=== PATIENT | female | born 1975 | race Caucasian/White ===

== ENCOUNTER 2018-03-30 17:22 | Inpatient (IN) ==
[2018-03-30] MEDS ORDERED: 0.9 % Sodium Chloride 500 ML IVC ONE (17:37)
[2018-03-30] MEDS ORDERED: Aspirin 81 MG TAB.CHEW PO ONE (17:37)
[2018-03-30] MEDS ORDERED: Nitroglycerin 0.4 MG TAB.SUBL SL STA (17:45)
[2018-03-30] MEDS ORDERED: Nitroglycerin 25 MG/250 ML INFUS..BTL IVC SCH (17:45)
--- NOTE | 2018-03-30 17:47 | Emergency Department Note ---
Disposition Clinical Impression: Chest pain Qualifiers: Chest pain type: unspecified Qualified Code(s): R07.9 - Chest pain, unspecified Disposition: Admitted As Inpatient Condition: Fair Referrals: Swapna Lugo CNP [Primary Care Provider] - Forms: ED Satisfaction Letter Time of Disposition: 20:17 General Adult HPI - General Chief complaint: ED Chest Pain Stated complaint: CP Time Seen by Provider: 03/30/18 17:29 Source: patient Nursing Notes Reviewed: Yes Vital Signs Reviewed: Yes - History of Present Illness Pain Scale: 0 - Related Data Home Medications Medication Instructions Recorded Confirmed Acetaminophen [Tylenol] 650 mg PO Q6HR PRN 03/17/18 03/30/18 Buspirone HCl [Buspar] 30 mg PO BID 03/17/18 03/30/18 Oxybutynin Chloride [Ditropan Xl] 5 mg PO DAILY 03/17/18 03/30/18 Amitriptyline [Elavil] 75 mg PO HS 03/30/18 03/30/18 Aspirin Enteric Coated [Aspirin EC] 81 mg PO DAILY 03/30/18 03/30/18 Diltiazem [Cardizem] 30 mg PO QID 03/30/18 03/30/18 Linaclotide [Linzess] 290 mcg PO DAILY 03/30/18 03/30/18 Nitroglycerin [Nitrostat] 0.4 mg PO AD PRN 03/30/18 03/30/18 Pantoprazole Sodium [Protonix] 40 mg PO DAILY 03/30/18 03/30/18 Venlafaxine HCl [Venlafaxine HCl 225 mg PO DAILY 03/30/18 03/30/18 ER] Previous Rx's Medication Instructions Recorded Atorvastatin [Lipitor] 40 mg PO HS 30 Days #30 tablet 03/18/18 Metoprolol [Lopressor] 25 mg PO BID 30 Days #60 tablet 03/18/18 Allergies Allergy/AdvReac Type Severity Reaction Status Date / Time morphine AdvReac Intermediate Vomiting Verified 03/30/18 18:44 Past Medical History - Past Medical History Medical history: Reports: coronary artery disease, hyperlipidemia, hypertension Psychiatric history: Reports: anxiety, depression - Social History Smoking Status: Current every day smoker Smokeless Tobacco Status: No Alcohol use: Reports: none Drug use: Reports: none Course Vital Signs Temperature 98.0 F 03/30/18 17:24 Pulse Rate 66 03/30/18 17:24 Respiratory Rate 18 03/30/18 17:24 Blood Pressure 144/86 03/30/18 17:24 O2 Sat by Pulse Oximetry 100 03/30/18 17:24 Temperature 98.0 F 03/30/18 17:50 Pulse Rate 63 03/30/18 19:33 Respiratory Rate 18 03/30/18 19:33 Blood Pressure 105/60 03/30/18 19:33 O2 Sat by Pulse Oximetry 100 03/30/18 19:33 Oxygen Delivery Oxygen Delivery Room Air Medical Decision Making - Lab Data Result diagrams: 03/30/18 18:02 03/30/18 18:02 Lab Results 03/30/18 03/30/18 03/30/18 Range/Units 18:02 18:02 18:02 WBC 11.6 H (4.3-11.1) K/mcL RBC 4.80 (3.82-4.97) M/mcL Hgb 13.7 (11.5-15.4) g/dL Hct 42.2 (35.3-44.9) % MCV 87.9 (83.0-100.0) fL MCH 28.5 (28.0-33.3) pg MCHC 32.5 (31.6-35.5) g/dL RDW 14.7 H (11.5-14.5) % Plt Count 364 (140-400) K/mcL MPV 9.4 (9.4-12.4) fL Immature Gran % 0.3 (0-4) % Seg Neutrophils % 63.5 % Lymphocytes % 28.7 % Monocytes % 4.7 % Eosinophils % 2.5 % Basophils % 0.3 % Neutrophils # 7.4 (1.6-8.9) K/mcL Lymphocytes # 3.3 (0.6-4.6) K/mcL Monocytes # 0.5 (0.0-1.3) K/mcL Eosinophils # 0.3 (0.0-0.6) K/mcL Basophils # 0.0 (0.0-0.2) K/mcL PT 10.9 (9.4-12.1) Seconds INR 1.0 APTT 31.2 (26.0-36.0) Seconds Sodium 136 (136-145) mEq/L Potassium 3.7 (3.5-5.1) mEq/L Chloride 105 (98-107) mEq/L Carbon Dioxide 24 (23-29) mEq/L BUN 10 (6-20) mg/dL Creatinine 0.97 (0.60-1.20) mg/dL Est GFR ( Amer) > 60 (> 60) Est GFR (Non-Af Amer) > 60 (> 60) BUN/Creatinine Ratio 10 (6-26) Glucose 98 (70-105) mg/dL Calculated Osmolality 281 (280-300) Calcium 9.0 (8.6-10.3) mg/dL Troponin I < 0.03 (< 0.04) ng/mL Urine Color (Yellow) Urine Clarity (Clear) Urine pH (5.0-8.0) pH Units Ur Specific [place] (1.010-1.025) Urine Protein (Neg-Trace) mg/dL Urine Glucose (UA) (Normal) mg/dL Urine Ketones (Negative) mg/dL Urine Blood (Negative) Urine Nitrite (Negative) Urine Bilirubin (Negative) Urine Urobilinogen (Normal) mg/dL Ur Leukocyte Esterase (Negative) Ur Culture Indicated? (NO) Urine Test (Negative) 03/30/18 03/30/18 Range/Units 18:22 18:22 WBC (4.3-11.1) K/mcL RBC (3.82-4.97) M/mcL Hgb (11.5-15.4) g/dL Hct (35.3-44.9) % MCV (83.0-100.0) fL MCH (28.0-33.3) pg MCHC (31.6-35.5) g/dL RDW (11.5-14.5) % Plt Count (140-400) K/mcL MPV (9.4-12.4) fL Immature Gran % (0-4) % Seg Neutrophils % % Lymphocytes % % Monocytes % % Eosinophils % % Basophils % % Neutrophils # (1.6-8.9) K/mcL Lymphocytes # (0.6-4.6) K/mcL Monocytes # (0.0-1.3) K/mcL Eosinophils # (0.0-0.6) K/mcL Basophils # (0.0-0.2) K/mcL PT (9.4-12.1) Seconds INR APTT (26.0-36.0) Seconds Sodium (136-145) mEq/L Potassium (3.5-5.1) mEq/L Chloride (98-107) mEq/L Carbon Dioxide (23-29) mEq/L BUN (6-20) mg/dL Creatinine (0.60-1.20) mg/dL Est GFR ( Amer) (> 60) Est GFR (Non-Af Amer) (> 60) BUN/Creatinine Ratio (6-26) Glucose (70-105) mg/dL Calculated Osmolality (280-300) Calcium (8.6-10.3) mg/dL Troponin I (< 0.04) ng/mL Urine Color Yellow (Yellow) Urine Clarity Clear (Clear) Urine pH 6.0 (5.0-8.0) pH Units Ur Specific [place] 1.016 (1.010-1.025) Urine Protein Negative (Neg-Trace) mg/dL Urine Glucose (UA) Normal (Normal) mg/dL Urine Ketones Negative (Negative) mg/dL Urine Blood Negative (Negative) Urine Nitrite Negative (Negative) Urine Bilirubin Negative (Negative) Urine Urobilinogen Normal (Normal) mg/dL Ur Leukocyte Esterase Negative (Negative) Ur Culture Indicated? NO (NO) Urine Test Negative (Negative) Attestation Statement - Attestation Attestation: I examined this patient and my medical decision-making was reviewed with the Resident Physician. I agree with the documented findings, disposition and treat ment plan as described except to the extent set forth below. Patient presents to the ED with a chief complaint of chest pain. Onset this morning. Substernal. Patient has been having issues for couple weeks. She had a heart catheter a week ago that showed a 60% stenosis. They contemplated sending her at that time since she was symptomatically. They wonder to pass a kidney stone. She had surgery on that Thursday. She states the chest pain returned today. On examination she is pleasant conversant in no distress. She is complaining of active chest pain. Lungs clear. Plan. Cardiac workup. Nitroglycerin. Anticipate admission for cardiology consult. Troponin negative. Patient admitted for cardiac workup. Chest X-Ray 03/30/18 17:37 IMPRESSION: No acute cardiopulmonary findings. D/ / Brandy Carcamo MD / Brandy Carcamo MD Interpreting Provider: Brandy Carcamo MD
[2018-03-30 18:32] LABS: Basophils % 0.3 %; Eosinophils # 0.3 K/mcL (0.0-0.6); Eosinophils % 2.5 %; Hematocrit 42.2 % (35.3-44.9); Hemoglobin 13.7 g/dL (11.5-15.4); Immature Granulocytes % 0.3 % (0-4); Lymphocytes # 3.3 K/mcL (0.6-4.6); Lymphocytes % 28.7 %; Mean Corpuscular HGB Conc 32.5 g/dL (31.6-35.5); Mean Corpuscular Hemoglobin 28.5 pg (28.0-33.3); Mean Corpuscular Volume 87.9 fL (83.0-100.0); Mean Platelet Volume 9.4 fL (9.4-12.4); Monocytes # 0.5 K/mcL (0.0-1.3); Monocytes % 4.7 %; Neutrophils # 7.4 K/mcL (1.6-8.9); Platelet Count 364 K/mcL (140-400); Red Cell Distribution Width 14.7 % (11.5-14.5); Segmented Neutrophils % 63.5 %
[2018-03-30 18:39] LABS: Prothrombin Time 10.9 Seconds (9.4-12.1)
--- NOTE | 2018-03-30 18:39 | Emergency Department Note ---
Disposition Clinical Impression: Chest pain Qualifiers: Chest pain type: unspecified Qualified Code(s): R07.9 - Chest pain, unspecified Disposition: Admitted As Inpatient Condition: Fair Chest Pain HPI - General Chief Complaint: ED Chest Pain Stated Complaint: CP Time Seen by Provider: 03/30/18 17:29 Source: patient, family Mode of arrival: ambulatory Limitations: no limitations Vital Signs Reviewed: Yes Nursing Notes Reviewed: Yes - History of Present Illness HPI Narrative: Patient presents to the ED with chief complaint of chest pain. Patient just had a heart catheter on the sixth of this month that showed a 60% blockage. She is on nitroglycerin at home. States she has been having intermittent chest pain and does see cardiology for this. She has no stents currently. She states that 3 AM this morning. She had "the worst chest pain of my life." She described it as a crushing pressure in the center of her chest, nonradiating did make her nauseated but no vomiting. No diaphoresis. The pain lasted approximately 30 seconds, but she states only that went away. His that she got to the kitchen and took a nitroglycerin. She states the pain has started to come back, but is much less. Now it is more of just a dull discomfort. No headaches or changes in vision. She does get headaches after taking nitroglycerin but that does go away eventually. No current shortness of breath. Denies any abdominal pain, vomiting, diarrhea, hematuria or dysuria. No melena or hematochezia. No rashes. No history of DVT or PE. Does have a strong family history of early heart attacks in the 40s and 50s Severity scale (1-10): 0 - Related Data Home Medications Medication Instructions Recorded Confirmed Acetaminophen [Tylenol] 650 mg PO Q6HR PRN 03/17/18 03/30/18 Buspirone HCl [Buspar] 30 mg PO BID 03/17/18 03/30/18 Oxybutynin Chloride [Ditropan Xl] 5 mg PO DAILY 03/17/18 03/30/18 Amitriptyline [Elavil] 75 mg PO HS 03/30/18 03/30/18 Aspirin Enteric Coated [Aspirin EC] 81 mg PO DAILY 03/30/18 03/30/18 Diltiazem [Cardizem] 30 mg PO QID 03/30/18 03/30/18 Linaclotide [Linzess] 290 mcg PO DAILY 03/30/18 03/30/18 Nitroglycerin [Nitrostat] 0.4 mg PO AD PRN 03/30/18 03/30/18 Pantoprazole Sodium [Protonix] 40 mg PO DAILY 03/30/18 03/30/18 Venlafaxine HCl [Venlafaxine HCl 225 mg PO DAILY 03/30/18 03/30/18 ER] Previous Rx's Medication Instructions Recorded Atorvastatin [Lipitor] 40 mg PO HS 30 Days #30 tablet 03/18/18 Metoprolol [Lopressor] 25 mg PO BID 30 Days #60 tablet 03/18/18 Allergies Allergy/AdvReac Type Severity Reaction Status Date / Time morphine AdvReac Intermediate Vomiting Verified 03/30/18 18:44 Review of Systems: As reviewed in the HPI. All other systems reviewed are negative or normal. Chest Pain PMH - Past Medical History Medical history: Reports: coronary artery disease, hyperlipidemia, hypertension Psychiatric history: Reports: anxiety, depression - Social History Smoking Status: Current every day smoker Alcohol use: Reports: none Drug use: Reports: none Physical Exam CONSTITUTIONAL: [well appearing, alert and in no acute distress] EYES: [EOMI, clear conjunctiva, PERRLA] HENT: [Normocephalic, atraumatic, moist mucus membranes, normal oropharynx] NECK: [normal inspection, full ROM, trachea midline, no obvious swelling] PULMONARY: [normal lung sounds bilaterally, normal chest rise and fall, no r espiratory distress or stridor, trace end expiratory wheezing throughout CARDIOVASCULAR: [regular rate, regular rhythm, normal heart sounds, no murmurs, distal extremities are warm and well perfused] GASTROINSTESTINAL: [soft, non-tender, non-rigid, non-distended, no guarding, no rebound, normal bowel sounds] GENITOURINARY/RECTAL: [deferred] NEUROLOGIC: [Alert, oriented x3, normal speech, moves all extremities] EXTREMITIES: [Normal inspection, full ROM, no tenderness, no pedal edema, normal capillary refill] MUSCULOSKELETAL: [no gross deformities, atraumatic] SKIN: [No cyanosis, no diaphoresis, normal color, warm, no rash] PSYCHIATRIC: [normal mood and affect] - General General appearance: alert, in no apparent distress Course Course Narrative: Patient presenting with angina. EKG shows some ST segment depression inferiorly. Patient has a known blockages no stents. We will start on a nitroglycerin drip check labs and admit. Vital Signs Temperature 98.0 F 03/30/18 17:24 Pulse Rate 66 03/30/18 17:24 Respiratory Rate 18 03/30/18 17:24 Blood Pressure 144/86 03/30/18 17:24 O2 Sat by Pulse Oximetry 100 03/30/18 17:24 Temperature 98.0 F 03/30/18 17:50 Pulse Rate 63 03/30/18 19:33 Respiratory Rate 18 03/30/18 19:33 Blood Pressure 105/60 03/30/18 19:33 O2 Sat by Pulse Oximetry 100 03/30/18 19:33 Oxygen Delivery Oxygen Delivery Room Air Chest Pain - Medical Records Medical records reviewed: Yes I reviewed the patient's medical records. - Lab Data Lab results reviewed: Yes I reviewed the patient's lab results. Result diagrams: 03/30/18 18:02 03/30/18 18:02 Lab Results 03/30/18 03/30/18 03/30/18 Range/Units 18:02 18:02 18:02 WBC 11.6 H (4.3-11.1) K/mcL RBC 4.80 (3.82-4.97) M/mcL Hgb 13.7 (11.5-15.4) g/dL Hct 42.2 (35.3-44.9) % MCV 87.9 (83.0-100.0) fL MCH 28.5 (28.0-33.3) pg MCHC 32.5 (31.6-35.5) g/dL RDW 14.7 H (11.5-14.5) % Plt Count 364 (140-400) K/mcL MPV 9.4 (9.4-12.4) fL Immature Gran % 0.3 (0-4) % Seg Neutrophils % 63.5 % Lymphocytes % 28.7 % Monocytes % 4.7 % Eosinophils % 2.5 % Basophils % 0.3 % Neutrophils # 7.4 (1.6-8.9) K/mcL Lymphocytes # 3.3 (0.6-4.6) K/mcL Monocytes # 0.5 (0.0-1.3) K/mcL Eosinophils # 0.3 (0.0-0.6) K/mcL Basophils # 0.0 (0.0-0.2) K/mcL PT 10.9 (9.4-12.1) Seconds INR 1.0 APTT 31.2 (26.0-36.0) Seconds Heparin Anti-Xa, Unfract (0.30-0.70) IU/mL Sodium 136 (136-145) mEq/L Potassium 3.7 (3.5-5.1) mEq/L Chloride 105 (98-107) mEq/L Carbon Dioxide 24 (23-29) mEq/L BUN 10 (6-20) mg/dL Creatinine 0.97 (0.60-1.20) mg/dL Est GFR ( Amer) > 60 (> 60) Est GFR (Non-Af Amer) > 60 (> 60) BUN/Creatinine Ratio 10 (6-26) Glucose 98 (70-105) mg/dL Calculated Osmolality 281 (280-300) Calcium 9.0 (8.6-10.3) mg/dL Troponin I < 0.03 (< 0.04) ng/mL Urine Color (Yellow) Urine Clarity (Clear) Urine pH (5.0-8.0) pH Units Ur Specific [place] (1.010-1.025) Urine Protein (Neg-Trace) mg/dL Urine Glucose (UA) (Normal) mg/dL Urine Ketones (Negative) mg/dL Urine Blood (Negative) Urine Nitrite (Negative) Urine Bilirubin (Negative) Urine Urobilinogen (Normal) mg/dL Ur Leukocyte Esterase (Negative) Ur Culture Indicated? (NO) Urine Test (Negative) 03/30/18 03/30/18 03/30/18 Range/Units 18:22 18:22 20:24 WBC (4.3-11.1) K/mcL RBC (3.82-4.97) M/mcL Hgb (11.5-15.4) g/dL Hct (35.3-44.9) % MCV (83.0-100.0) fL MCH (28.0-33.3) pg MCHC (31.6-35.5) g/dL RDW (11.5-14.5) % Plt Count (140-400) K/mcL MPV (9.4-12.4) fL Immature Gran % (0-4) % Seg Neutrophils % % Lymphocytes % % Monocytes % % Eosinophils % % Basophils % % Neutrophils # (1.6-8.9) K/mcL Lymphocytes # (0.6-4.6) K/mcL Monocytes # (0.0-1.3) K/mcL Eosinophils # (0.0-0.6) K/mcL Basophils # (0.0-0.2) K/mcL PT (9.4-12.1) Seconds INR APTT (26.0-36.0) Seconds Heparin Anti-Xa, Unfract 0.03 L (0.30-0.70) IU/mL Sodium (136-145) mEq/L Potassium (3.5-5.1) mEq/L Chloride (98-107) mEq/L Carbon Dioxide (23-29) mEq/L BUN (6-20) mg/dL Creatinine (0.60-1.20) mg/dL Est GFR ( Amer) (> 60) Est GFR (Non-Af Amer) (> 60) BUN/Creatinine Ratio (6-26) Glucose (70-105) mg/dL Calculated Osmolality (280-300) Calcium (8.6-10.3) mg/dL Troponin I (< 0.04) ng/mL Urine Color Yellow (Yellow) Urine Clarity Clear (Clear) Urine pH 6.0 (5.0-8.0) pH Units Ur Specific [place] 1.016 (1.010-1.025) Urine Protein Negative (Neg-Trace) mg/dL Urine Glucose (UA) Normal (Normal) mg/dL Urine Ketones Negative (Negative) mg/dL Urine Blood Negative (Negative) Urine Nitrite Negative (Negative) Urine Bilirubin Negative (Negative) Urine Urobilinogen Normal (Normal) mg/dL Ur Leukocyte Esterase Negative (Negative) Ur Culture Indicated? NO (NO) Urine Test Negative (Negative) - Radiology Data Radiology results reviewed: Yes I reviewed the patient's radiology results. - EKG Data EKG attestation: Yes I reviewed and interpreted this EKG. EKG results narrative: Sinus rhythm, rate 67, ST segment depression inferiorly, otherwise no acute ischemic changes
[2018-03-30 18:41] LABS: Activated Partial Thrombo Time 31.2 Seconds (26.0-36.0)
[2018-03-30 18:41] LABS: Bilirubin,Urine Negative (Negative); Blood,Urine Negative (Negative); Clarity,Urine Clear (Clear); Color,Urine Yellow (Yellow); Glucose,Urine (UA) Normal (Normal); Ketones,Urine Negative (Negative); Leukocyte Esterase,Urine Negative (Negative); Nitrite,Urine Negative (Negative); Protein,Urine Negative (Neg-Trace); Specific Gravity,Urine 1.016 (1.010-1.025); Urobilinogen,Urine Normal (Normal)
[2018-03-30 18:42] LABS: Troponin I < 0.03 ng/mL (< 0.04)
[2018-03-30 18:45] LABS: BUN/Creatinine Ratio 10 (6-26); Blood Urea Nitrogen 10 mg/dL (6-20); Carbon Dioxide 24 mEq/L (23-29); Chloride 105 mEq/L (98-107); Glucose 98 mg/dL (70-105); Osmolality,Calculated 281 (280-300); Potassium 3.7 mEq/L (3.5-5.1); Sodium 136 mEq/L (136-145); eGFR For Non-African Americans > 60 (> 60)
[2018-03-30] MEDS ORDERED: *HR* Heparin 5,000 UNIT/ML VIAL IVP ONE (19:43)
[2018-03-30] MEDS ORDERED: Nitroglycerin 0.4 MG TAB.SUBL SL PRN (20:52)
[2018-03-30] MEDS ORDERED: traMADol 50 MG TABLET PO ONE (20:52)
[2018-03-30] MEDS: Heparin 25,000 UNIT/500 ML D5W 25,000 UNIT/500 ML BAG IVC SCH (21:01)
--- NOTE | 2018-03-30 22:12 | Internal Med History&Physical ---
Date of Encounter: 03/30/18 Time of Encounter: 22:09 Internal Medicine - H&P: HPI Chief complaint: chest pain Admitted From: Home Plans for Post Hospital Care: Home History of present illness: Lorena Lew is a 42-year-old woman with hypertension, hyperlipidemia and coronary artery disease found to have mild to moderate 2 vessel disease on cardiac catheter done for unstable angina on 03/18/18 and no further intervention done as she was scheduled for lithotripsy and ureteral stent placement the setting of nephrolithiasis a few days after. She comes to the ER today complaining of chest pain that started at 3 AM this morning while sleep describing it as a crushing pressure sensation in the center of her chest that resolved with nitroglycerin. Later on in the day after work she again developed chest pain but now with radiation to the left side of her neck and shoulder. This prompted her to seek medical attention. The ER she was seen clinically and hemodynamically stable. EKG on my review showed normal sinus rhythm with no ST segment elevations. Her chest pain did not resolve with sublingual nitroglycerin and was subsequently started on nitroglycerin drip. This brought the pain down to 7/10 and she reported to me and therefore heparin drip was started. Lab studies are grossly unremarkable on this time. She is now admitted for further observation. Past Med Surg Social Fam HX - Past Medical History Medical history: coronary artery disease, hyperlipidemia, hypertension Psychiatric history: anxiety, depression - Past Surgical History Additional surgical history: heart cath, rhinoplasty, tubal, partial hyst, ablation - Social History Smoking Status: Current every day smoker Smokeless Tobacco Status: No Alcohol use: none Drug use: none - Family History Mother Living Status: Hx Family Cardiac Disorders: Yes Hx Family Respiratory Disorders: No Hx Family Cancer: No Hx Family GI Disorders: No Hx Family Endocrine Disorder: Yes Hx Family Neuromuscular Disorders: No Hx Family Neurologic Disorders: Yes Hx Family Autoimmune Disorders: No Father Living Status: Still Living Hx Family Cardiac Disorders: Yes Hx Family Respiratory Disorders: Yes Hx Family Cancer: Yes (Prostate cancer) Internal Medicine - H&P: Meds Acetaminophen [Tylenol] 650 mg PO Q6HR PRN 03/17/18 [History] Buspirone HCl [Buspar] 30 mg PO BID 03/17/18 [History] Oxybutynin Chloride [Ditropan Xl] 5 mg PO DAILY 03/17/18 [History] Atorvastatin [Lipitor] 40 mg PO HS 30 Days #30 tablet 03/18/18 [Rx] Metoprolol [Lopressor] 25 mg PO BID 30 Days #60 tablet 03/18/18 [Rx] Amitriptyline [Elavil] 75 mg PO HS 03/30/18 [History] Aspirin Enteric Coated [Aspirin EC] 81 mg PO DAILY 03/30/18 [History] Diltiazem [Cardizem] 30 mg PO QID 03/30/18 [History] Linaclotide [Linzess] 290 mcg PO DAILY 03/30/18 [History] Nitroglycerin [Nitrostat] 0.4 mg PO AD PRN 03/30/18 [History] Pantoprazole Sodium [Protonix] 40 mg PO DAILY 03/30/18 [History] Venlafaxine HCl [Venlafaxine HCl ER] 225 mg PO DAILY 03/30/18 [History] Allergy/AdvReac Type Severity Reaction Status Date / Time morphine AdvReac Intermediate Vomiting Verified 03/30/18 18:44 All Systems PM: A 10-system review of systems was performed and is negative for pertinent findings except as documented above in the HPI. - Constitutional Vitals: Temp Pulse Resp BP Pulse Ox 98.0 F 67 18 107/66 98 03/30/18 17:50 03/30/18 21:05 03/30/18 21:05 03/30/18 21:05 03/30/18 21:05 Exam: Vitals: Reviewed General: Well-developed and well-appearing in no acute distress. Skin: Warm and supple. HEENT: Moist mucous membranes. No conjunctivae pallor. Neck: No lymphadenopathy. No JVD. No carotid bruits. No palpable thyroid. Chest: Normal thoracic expansion. Normal breath sounds. Clear to auscultation. Heart: Normal S1 & S2; rhythmic. No rubs or murmurs. Abdomen: Non-distended, soft and non-tender to palpation. No peritoneal reaction. Extremities: No clubbing, cyanosis or edema. No calf tenderness. Normal distal pulses. Neurological: Awake, alert and oriented to person, place and time. No focal deficits. Psych: Affect appropriate. Internal Med - H&P Results - Labs CBC & Chem 7: 03/30/18 18:02 03/30/18 18:02 Labs: Short CBC 03/30/18 Range/Units 18:02 WBC 11.6 H (4.3-11.1) K/mcL Hgb 13.7 (11.5-15.4) g/dL Hct 42.2 (35.3-44.9) % Plt Count 364 (140-400) K/mcL Neutrophils # 7.4 (1.6-8.9) K/mcL BMP 03/30/18 18:02 Sodium 136 Potassium 3.7 Chloride 105 Carbon Dioxide 24 BUN 10 Creatinine 0.97 Glucose 98 Calcium 9.0 Cardiac Enzymes 03/30/18 Range/Units 18:02 Troponin I < 0.03 (< 0.04) ng/mL Urine 03/30/18 Range/Units 18:22 Urine Color Yellow (Yellow) Urine Clarity Clear (Clear) Urine pH 6.0 (5.0-8.0) pH Units Ur Specific [place] 1.016 (1.010-1.025) Urine Protein Negative (Neg-Trace) mg/dL Urine Glucose (UA) Normal (Normal) mg/dL - Impressions ITS Impressions Chest X-Ray 03/30/18 17:37 IMPRESSION: No acute cardiopulmonary findings. D/ / Brandy Carcamo MD / Brandy Carcamo MD Interpreting Provider: Brandy Carcamo MD - Assessment and plan (1) Unstable angina Current Visit: Yes Status: Acute Assessment and plan: The patient has known CAD and progressive symptoms concerning for unstable angina. Will continue nitroglycerin and heparin gtt to achieve pain control. Trend troponins and monitor on telemetry. Will benefit from cardiology consultation. Will keep NPO PMN in the amish the a procedure is scheduled. (2) Coronary artery disease Current Visit: Yes Status: Chronic Assessment and plan: Will continue antiplatelet therapy, statin, beta and calcium channel blockers. Further management as indicated above. Qualifiers: Coronary Disease-Associated Artery/Lesion type: [place] artery [place] vs. transplanted heart: [place] heart Associated angina: with unstable angina Qualified Code(s): I25.110 - Atherosclerotic heart disease of [place] coronary artery with unstable angina pectoris (3) Ureteral colic Current Visit: Yes Status: Acute Assessment and plan: Now relieved after lithotripsy and stent placement. UA unremarkable. (4) Depression Current Visit: Yes Status: Chronic Assessment and plan: Will continue TCA and SNRI therapy. Qualifiers: Depression Type: unspecified Qualified Code(s): F32.9 - Major depressive disorder, single episode, unspecified (5) Tobacco abuse Current Visit: Yes Status: Chronic Assessment and plan: Counseled accordingly and resources made available. - Time Spent With Patient Total time spent is greater than 50% in coordination of care (as documented) at patient's floor/unit and/or counseling patient: Greater than 35 minutes
[2018-03-31] MEDS: Acetaminophen 325 MG TABLET PO PRN ×2 (03:56→11:38)
--- NOTE | 2018-03-31 07:28 | Internal Med Progress Note ---
Hospitalist Progress Note - Encounter Date of Encounter: 03/31/18 Time of Encounter: 08:00 - Exam Vitals: Temp Pulse Resp BP Pulse Ox 98.7 F 64 16 128/78 98 03/31/18 07:17 03/31/18 07:17 03/31/18 07:17 03/31/18 07:17 03/31/18 07:17 Exam: Vitals: Reviewed General: Well-developed and well-appearing in no acute distress. Skin: Warm and supple. HEENT: Moist mucous membranes. No conjunctivae pallor. Neck: No lymphadenopathy. No JVD. No carotid bruits. No palpable thyroid. Chest: Normal thoracic expansion. Normal breath sounds. Clear to auscultation. Heart: Normal S1 & S2; rhythmic. No rubs or murmurs. Abdomen: Non-distended, soft and non-tender to palpation. No peritoneal reaction. Extremities: No clubbing, cyanosis or edema. No calf tenderness. Normal distal pulses. Neurological: Awake, alert and oriented to person, place and time. No focal deficits. Psych: Affect appropriate. - Assessment and Plan (1) Unstable angina Current Visit: Yes Status: Acute Assessment and Plan: The patient has known CAD and progressive symptoms concerning for unstable angina. Will continue nitroglycerin and heparin gtt to achieve pain control. Seen by cardiology who plan to start ranexa BId and increasing dose of lopressor. Plan to repeat LHC if chest pain persists (2) Coronary artery disease Current Visit: Yes Status: Chronic Assessment and Plan: Will continue antiplatelet therapy, statin, and beta blockers. Ranexa added to regimen (3) Depression Current Visit: Yes Status: Chronic Assessment and Plan: Will continue TCA and SNRI therapy. (4) Tobacco abuse Current Visit: Yes Status: Chronic Assessment and Plan: Counseled accordingly and resources made available. (5) Ureteral colic Current Visit: Yes Status: Acute Assessment and Plan: Stable after lithotripsy and stent placement. UA unremarkable. - Time Spent with Patient Total time spent is greater than 50% in coordination of care (as documented) at patient's floor/unit and/or counseling patient: Internal Medicine: Result - Labs CBC & Chem 7: 03/30/18 18:02 03/30/18 18:02 Labs: Short CBC 03/30/18 Range/Units 18:02 WBC 11.6 H (4.3-11.1) K/mcL Hgb 13.7 (11.5-15.4) g/dL Hct 42.2 (35.3-44.9) % Plt Count 364 (140-400) K/mcL Neutrophils # 7.4 (1.6-8.9) K/mcL BMP 03/30/18 18:02 Sodium 136 Potassium 3.7 Chloride 105 Carbon Dioxide 24 BUN 10 Creatinine 0.97 Glucose 98 Calcium 9.0 Cardiac Enzymes 03/30/18 03/31/18 03/31/18 Range/Units 18:02 00:00 05:26 Troponin I < 0.03 < 0.03 < 0.03 (< 0.04) ng/mL Urine 03/30/18 Range/Units 18:22 Urine Color Yellow (Yellow) Urine Clarity Clear (Clear) Urine pH 6.0 (5.0-8.0) pH Units Ur Specific [place] 1.016 (1.010-1.025) Urine Protein Negative (Neg-Trace) mg/dL Urine Glucose (UA) Normal (Normal) mg/dL - ABG Interpretation ABG results: PT/INR, D-dimer PT 10.9 Seconds (9.4-12.1) 03/30/18 18:02 - Impressions Impressions Chest X-Ray 03/30/18 17:37 IMPRESSION: No acute cardiopulmonary findings. D/ / Brandy Carcamo MD / Brandy Carcamo MD Interpreting Provider: Brandy Carcamo MD Consult Discharge Plan - Plan Referrals: Swapna Lugo, [employer] [Primary Care Provider] - (2) Coronary artery disease Qualifiers: Coronary Disease-Associated Artery/Lesion type: [place] artery [place] vs. transplanted heart: [place] heart Associated angina: with unstable angina Qualified Code(s): I25.110 - Atherosclerotic heart disease of [place] coronary artery with unstable angina pectoris (3) Depression Qualifiers: Depression Type: unspecified Qualified Code(s): F32.9 - Major depressive disorder, single episode, unspecified
[2018-03-31] MEDS: Venlafaxine XR (24 HR) 75 MG CAP.ER.24H PO SCH (07:59)
[2018-03-31] MEDS: Aspirin Enteric Coated 81 MG Tablet PO SCH (07:59)
--- NOTE | 2018-03-31 09:14 | Cardiology Consult Note ---
<Christopher Butt R - Last Filed: 03/31/18 09:40> Date of Encounter: 03/31/18 Time of Encounter: 09:11 Assessment and Plan (1) Chest pain Current Visit: Yes Status: Resolved Per HPI, presented with chest pain, 2 episodes yesterday at rest. First episode associated dyspnea and nausea, relieved with nitro. Second episode associated bilateral jaw and shoulder pain, improvement with nitro, but not relieved. EKG no ischemic changes. Troponin negative x 3. Chest pain currently 09/20 on nitro gtt at 10mcg/min. Recent C 03/18/18: There is mild to moderate two vessel CAD. EF 65%. FFR Measurement: 0.81 (Mid LAD). Check TTE. Reviewed [facility] films with interventionalist, Dr. Taylor. LAD appears tortuous. Recommend optimizing medications. Unable to tolerate Imdur d/t headaches. Will start Ranexa 500mg BID. Recently started on Cardizem as outpt. Dr. Taylor recommends stopping Cardizem and increasing BB. Increased Lopressor from 25mg to 50mg BID. Med changes as above and attempt to wean off nitro gtt today. If chest pain persists despite optimizing meds, will consider repeating LHC. Continue to follow. Keep NPO. Re-evaluate later today. Will discuss and review with Dr. Ignacio. Qualifiers: Chest pain type: chest pain due to myocardial ischemia Ischemic chest pain type: unstable angina pectoris Qualified Code(s): I20.0 - Unstable angina (2) Tobacco abuse Current Visit: Yes Status: Chronic Smoking cessation counseling given. (3) Coronary artery disease Current Visit: Yes Status: Chronic As above. [facility] 03/18 mild-moderate 2V CAD. 60% mLAD, FFR 0.81. Continue ASA, Statin, BB. Started Ranexa. Qualifiers: Coronary Disease-Associated Artery/Lesion type: [place] artery [place] vs. transplanted heart: [place] heart Associated angina: with unstable angina Qualified Code(s): I25.110 - Atherosclerotic heart disease of [place] coronary artery with unstable angina pectoris Discussion w patient/family: The assessment and plan as outlined above was discussed with the patient and/or family members who expressed understanding and agreement. All questions were answered. Thank you for involving us in the care of your patient. Please call with any questions. I will discuss and review with Dr. Ignacio and make changes as necessary. History of Present Illness Consult date: 03/31/18 Consult reason: chest pain Chief complaint: chest pain History of present illness: Ms. Lew is a 42 year old female with PMH of HTN, HLD, and mild-moderate 2 vessel CAD on [facility] 03/18/18 presents to ED with complaint of chest pain that started at 3 AM yesterday morning that woke her from sleep, described as crushing pressure in the center of her chest that resolved with nitroglycerin associated with dyspnea and nausea. Later yesterday after work she again developed chest pain, bilateral jaw and shoulder pain. She took nitro with improvement, but not total relief, prompting ED evaluation. Troponins negative x 3. Cardiology consulted for further recs. Pt currently reports chest pain 09/20, on nitro gtt at 10mcg/min. Prior CV testing [facility] 03/18/18: There is mild to moderate two vessel coronary artery disease. The left ventricle is normal and has normal contractility EF 65%. FFR Measurement: 0.81 (Mid LAD). Past Med Surg Social Fam HX - Past Medical History Medical history: coronary artery disease, hyperlipidemia, hypertension, kidney stones Psychiatric history: anxiety, depression - Past Surgical History Additional surgical history: heart cath 03/18/18, rhinoplasty, tubal, partial hyst, ablation, kidney stone extraction - Social History Smoking Status: Current every day smoker Packs per day: 1 Smokeless Tobacco Status: No Alcohol use: none Drug use: none - Family History Father Living Status: Still Living Hx Family Cardiac Disorders: Yes Hx Family Respiratory Disorders: Yes Hx Family Cancer: Yes (Prostate cancer) Mother Living Status: Hx Family Cardiac Disorders: Yes Hx Family Respiratory Disorders: No Hx Family Cancer: No Hx Family GI Disorders: No Hx Family Endocrine Disorder: Yes Hx Family Neuromuscular Disorders: No Hx Family Neurologic Disorders: Yes Hx Family Autoimmune Disorders: No Medications and Allergies RX: Acetaminophen [Tylenol] 650 mg PO Q6HR PRN 03/17/18 [History] RX: Buspirone HCl [Buspar] 30 mg PO BID 03/17/18 [History] RX: Oxybutynin Chloride [Ditropan Xl] 5 mg PO DAILY 03/17/18 [History] RX: Atorvastatin [Lipitor] 40 mg PO HS 30 Days #30 tablet 03/18/18 [Rx] RX: Metoprolol [Lopressor] 25 mg PO BID 30 Days #60 tablet 03/18/18 [Rx] Amitriptyline [Elavil] 75 mg PO HS 03/30/18 [History] Aspirin Enteric Coated [Aspirin EC] 81 mg PO DAILY 03/30/18 [History] Diltiazem [Cardizem] 30 mg PO QID 03/30/18 [History] Linaclotide [Linzess] 290 mcg PO DAILY 03/30/18 [History] Pantoprazole Sodium [Protonix] 40 mg PO DAILY 03/30/18 [History] RX: Nitroglycerin [Nitrostat] 0.4 mg PO AD PRN 03/30/18 [History] Venlafaxine HCl [Venlafaxine HCl ER] 225 mg PO DAILY 03/30/18 [History] Allergy/AdvReac Type Severity Reaction Status Date / Time morphine AdvReac Intermediate Vomiting Verified 03/30/18 18:44 All Systems Review: The remainder of the systems were reviewed and are negative - Cardiovascular Cardiovascular: as per HPI, chest pain at rest, diaphoresis, dyspnea at rest, radiating jaw, neck or arm pain Physical Examination Vital Signs, Last 4 Hours Temp Pulse Resp BP Pulse Ox 03/31/18 08:10 97 03/31/18 07:52 109/67 03/31/18 07:17 98.7 F 64 16 128/78 98 Vital Signs Temp Pulse Resp BP Pulse Ox 03/31/18 08:10 97 03/31/18 07:52 109/67 03/31/18 07:17 98.7 F 64 16 128/78 98 03/31/18 03:43 98.3 F 65 17 112/73 99 03/30/18 22:16 98.6 F 62 17 117/74 97 03/30/18 21:05 67 18 107/66 98 03/30/18 19:33 63 18 105/60 100 03/30/18 18:38 75 18 113/71 100 03/30/18 17:50 98.0 F 66 18 144/86 100 03/30/18 17:24 98.0 F 66 18 144/86 100 Intake and Output 03/30/18 03/31/18 03/31/18 23:59 07:59 15:59 Intake Total 0 / 0 63 / 63 Balance 0 / 0 63 Intake: IV Fluids 0 / 0 63 / 63 Heparin 25,000 UNIT/500 ML D5W 0 / 0 25,000 unit In 500 ml @ 12 UNIT /KG/HR 18.071 mls/hr IVC .Q24H [facility] Rx#:[id number] Nitroglycerin Premix 25 MG/250 0 / 0 63 / 63 ML 25 mg In 250 ml @ 5 MCG/MIN 3 mls/hr IVC .Q24H [facility] Rx#: [id number] Other: Weight 76 kg General: Conversant, No Apparent Distress HEENT: Atraumatic, Normocephaly, Mucus Membranes Moist Neck: No JVD, Normal carotid pulses Cardiac: Reg Rate and Rhythm, Normal S1 and S2, No Murmur Lungs: Normal Breath Sounds, No Wheeze, Rales, Rhonchi Neuro: Alert and responsive, No focal deficits noted Abdomen: Soft, Non-Tender Skin: No rashes noted on visualized skin Musculoskeletal: No Chest Wall Tenderness Extremities: No Clubbing, No Cyanosis, No Edema, Normal Pulses Results 03/30/18 18:02 03/30/18 18:02 Lab Results 03/30/18 03/30/18 03/30/18 18:02 18:02 18:02 WBC 11.6 H Hgb 13.7 Hct 42.2 Plt Count 364 INR 1.0 APTT 31.2 Sodium 136 Potassium 3.7 Chloride 105 Carbon Dioxide 24 BUN 10 Creatinine 0.97 Glucose 98 Calcium 9.0 Troponin I < 0.03 03/31/18 03/31/18 00:00 05:26 WBC Hgb Hct Plt Count INR APTT Sodium Potassium Chloride Carbon Dioxide BUN Creatinine Glucose Calcium Troponin I < 0.03 < 0.03 Short CBC 03/30/18 Range/Units 18:02 WBC 11.6 H (4.3-11.1) K/mcL Hgb 13.7 (11.5-15.4) g/dL Hct 42.2 (35.3-44.9) % Plt Count 364 (140-400) K/mcL Neutrophils # 7.4 (1.6-8.9) K/mcL BMP 03/30/18 Range/Units 18:02 Sodium 136 (136-145) mEq/L Potassium 3.7 (3.5-5.1) mEq/L Chloride 105 (98-107) mEq/L Carbon Dioxide 24 (23-29) mEq/L BUN 10 (6-20) mg/dL Creatinine 0.97 (0.60-1.20) mg/dL Glucose 98 (70-105) mg/dL Calcium 9.0 (8.6-10.3) mg/dL Cardiac Enzymes 03/31/18 03/31/18 03/30/18 Range/Units 05:26 00:00 18:02 Troponin I < 0.03 < 0.03 < 0.03 (< 0.04) ng/mL Urine 03/30/18 Range/Units 18:22 Urine Color Yellow (Yellow) Urine Clarity Clear (Clear) Urine pH 6.0 (5.0-8.0) pH Units Ur Specific [place] 1.016 (1.010-1.025) Urine Protein Negative (Neg-Trace) mg/dL Urine Glucose (UA) Normal (Normal) mg/dL Impressions Chest X-Ray 03/30/18 17:37 IMPRESSION: No acute cardiopulmonary findings. D/ / Brandy Carcamo MD / Brandy Carcamo MD Interpreting Provider: Brandy Carcamo MD Active Medications Acetaminophen (Tylenol) 650 mg PO Q6HR PRN PRN Reason: mild to moderate pain Stop: 09/29/18 20:53 Last Admin: 03/31/18 03:56 Dose: 650 mg Amitriptyline HCl (Elavil) 75 mg PO HS [facility] Stop: 09/29/18 21:01 Last Admin: 03/30/18 22:23 Dose: Not Given Aspirin (Aspirin Ec) 81 mg PO DAILY [facility] Stop: 09/30/18 09:01 Last Admin: 03/31/18 07:59 Dose: 81 mg Atorvastatin Calcium (Lipitor) 40 mg PO HS [facility] Stop: 09/29/18 21:01 Last Admin: 03/30/18 22:24 Dose: Not Given Buspirone HCl (Buspar) 30 mg PO BID [facility] Stop: 09/29/18 21:01 Last Admin: 03/31/18 07:59 Dose: 30 mg Nitroglycerin (Nitroglycerin Premix 25 Mg/250 Ml) 25 mg in 250 mls @ 3 mls/hr IVC .Q24H [facility] Stop: 09/29/18 17:46 Last Infusion: 03/31/18 07:28 Dose: 10 mcg/min, 6 mls/hr Heparin Sodium/Dextrose (Heparin 25,000 Unit/500 Ml D5w) 25,000 unit in 500 mls @ 18.071 mls/hr IVC .Q24H [facility]; Protocol Stop: 09/29/18 19:46 Last Titration: 03/31/18 04:05 Dose: 12.02 unit/kg/hr, 18.1 mls/hr Metoprolol Tartrate (Lopressor) 50 mg PO BID [facility] Stop: 09/30/18 21:01 Nitroglycerin (Nitroglycerin) 0.4 mg SL AD PRN PRN Reason: Chest Pain Stop: 09/29/18 20:53 Omeprazole (Prilosec) 20 mg PO 0630 [facility] Stop: 09/30/18 06:31 Last Admin: 03/31/18 06:12 Dose: 20 mg Oxybutynin Chloride (Ditropan) 5 mg PO BID [facility]; Protocol Stop: 09/30/18 09:01 Last Admin: 03/31/18 07:59 Dose: 5 mg Ranolazine (Ranexa) 500 mg PO BID [facility] Stop: 09/30/18 09:01 Tramadol HCl (Ultram) 50 mg PO Q6HR PRN PRN Reason: Severe Pain/Headache Stop: 09/30/18 08:01 Venlafaxine HCl (Effexor Xr) 225 mg PO DAILY [facility] Stop: 09/30/18 09:01 Last Admin: 03/31/18 07:59 Dose: 225 mg - Imaging and Cardiology Cardiac cath: report reviewed - EKG Interpretation EKG results cardiology: personally reviewed, other (12 hr tele AVG HR 65, SR) Consult Discharge Plan - Plan Referrals: Swapna Lugo, [employer] [Primary Care Provider] - <Lili Ignacio - Last Filed: 03/31/18 13:21> Date of Encounter: 03/31/18 - Attending Attestation I have personally performed a face to face evaluation on this patient. I have re viewed and agree with the care plan. History and Exam by me shows: 42 YOF with known non obstructive CAD in mid LAD FFR .81 a week ago back with chest pain. Will titrate meds if pain free will not proceed with LHC. If symptoms persist will pursue PCI of the mid LAD. Assessment and Plan Discussion w patient/family: The assessment and plan as outlined above was discussed with the patient and/or family members who expressed understanding and agreement. All questions were answered. Thank you for involving us in the care of your patient. Please call with any questions. History of Present Illness History of present illness: Ms. Lew is a 42 year old female All Systems Review: The remainder of the systems were reviewed and are negative Physical Examination Vital Signs, Last 4 Hours Temp Pulse Resp BP Pulse Ox 03/31/18 11:00 99.0 F 59 16 108/65 97 03/31/18 09:21 62 113/70 Results 03/30/18 18:02 03/30/18 18:02 Lab Results 03/30/18 03/30/18 12 18:02 18:02 18:02 WBC 11.6 H Hgb 13.7 Hct 42.2 Plt Count 364 INR 1.0 APTT 31.2 Sodium 136 Potassium 3.7 Chloride 105 Carbon Dioxide 24 BUN 10 Creatinine 0.97 Glucose 98 Calcium 9.0 Troponin I < 0.03 03/31/18 03/31/18 00:00 05:26 WBC Hgb Hct Plt Count INR APTT Sodium Potassium Chloride Carbon Dioxide BUN Creatinine Glucose Calcium Troponin I < 0.03 < 0.03
[2018-03-31] MEDS: traMADol 50 MG TABLET PO PRN (09:22)
[2018-03-31] MEDS: Ranolazine 500 MG TAB.ER.12H PO SCH ×2 (09:22→21:07)
[2018-03-31] MEDS: Nitroglycerin 25 MG/250 ML INFUS..BTL IVC SCH (11:39)
[2018-03-31] MEDS ORDERED: Ondansetron 4 MG/2 ML VIAL IVP PRN (11:53)
[2018-03-31] MEDS: OXYCODONE Oral CONC 10 MG/0.5 ML ORAL.SYG SL PRN ×2 (12:12→21:06)
[2018-03-31] MEDS ORDERED: *HR* Morphine 2 MG/ML SYRINGE IVP ONE (17:11)
[2018-04-01] MEDS: OXYCODONE Oral CONC 10 MG/0.5 ML ORAL.SYG SL PRN ×3 (00:56→18:39)
[2018-04-01] MEDS: Heparin 25,000 UNIT/500 ML D5W 25,000 UNIT/500 ML BAG IVC SCH ×3 (01:34→19:55)
[2018-04-01] MEDS: Nitroglycerin 25 MG/250 ML INFUS..BTL IVC SCH (05:26)
--- NOTE | 2018-04-01 07:29 | Internal Med Progress Note ---
Hospitalist Progress Note - Encounter Date of Encounter: 04/01/18 Time of Encounter: 07:30 - Exam Vitals: Temp Pulse Resp BP Pulse Ox 98.6 F 58 16 93/54 96 04/01/18 07:09 04/01/18 07:09 04/01/18 07:09 04/01/18 07:09 04/01/18 07:09 Exam: Vitals: Reviewed General: Well-developed and well-appearing in no acute distress. Skin: Warm and supple. HEENT: Moist mucous membranes. No conjunctivae pallor. Neck: No lymphadenopathy. No JVD. No carotid bruits. No palpable thyroid. Chest: Normal thoracic expansion. Normal breath sounds. Clear to auscultation. Heart: Normal S1 & S2; rhythmic. No rubs or murmurs. Abdomen: Non-distended, soft and non-tender to palpation. No peritoneal reaction. Extremities: No clubbing, cyanosis or edema. No calf tenderness. Normal distal pulses. Neurological: Awake, alert and oriented to person, place and time. No focal deficits. Psych: Affect appropriate. - Assessment and Plan (1) Unstable angina Current Visit: Yes Status: Acute Assessment and Plan: The patient has known CAD and progressive symptoms concerning for unstable a ngina. Will continue nitroglycerin and heparin gtt to achieve pain control. Seen by cardiology who plan to start ranexa BId and increasing dose of lopressor. Patient going for [facility] today (2) Coronary artery disease Current Visit: Yes Status: Chronic Assessment and Plan: Will continue antiplatelet therapy, statin, and beta blockers. Ranexa added to regimen (3) Depression Current Visit: Yes Status: Chronic Assessment and Plan: Will continue TCA and SNRI therapy. (4) Tobacco abuse Current Visit: Yes Status: Chronic Assessment and Plan: Counseled accordingly and resources made available. DVT Prophylaxis: on heparin drip - Time Spent with Patient Total time spent is greater than 50% in coordination of care (as documented) at patient's floor/unit and/or counseling patient: Internal Medicine: Result - Labs CBC & Chem 7: 04/01/18 08:15 04/01/18 08:15 Labs: Cardiac Enzymes 03/31/18 Range/Units 17:20 Troponin I < 0.03 (< 0.04) ng/mL - ABG Interpretation ABG results: PT/INR, D-dimer PT 10.9 Seconds (9.4-12.1) 03/30/18 18:02 Consult Discharge Plan - Plan Referrals: Swapna Lugo, ADRIANA [Primary Care Provider] - (2) Coronary artery disease Qualifiers: Coronary Disease-Associated Artery/Lesion type: [place] artery [place] vs. transplanted heart: [place] heart Associated angina: with unstable angina Qualified Code(s): I25.110 - Atherosclerotic heart disease of [place] coronary artery with unstable angina pectoris (3) Depression Qualifiers: Depression Type: unspecified Qualified Code(s): F32.9 - Major depressive disorder, single episode, unspecified
[2018-04-01] MEDS: Aspirin Enteric Coated 81 MG Tablet PO SCH (08:42)
[2018-04-01] MEDS: Venlafaxine XR (24 HR) 75 MG CAP.ER.24H PO SCH (08:42)
[2018-04-01] MEDS: Ranolazine 500 MG TAB.ER.12H PO SCH ×2 (08:42→21:53)
[2018-04-01 09:08] LABS: Basophils % 0.3 %; Eosinophils # 0.2 K/mcL (0.0-0.6); Eosinophils % 2.1 %; Hematocrit 37.2 % (35.3-44.9); Immature Granulocytes % 1.1 % (0-4); Lymphocytes # 2.9 K/mcL (0.6-4.6); Lymphocytes % 30.2 %; Mean Corpuscular HGB Conc 32.5 g/dL (31.6-35.5); Mean Corpuscular Hemoglobin 28.7 pg (28.0-33.3); Mean Corpuscular Volume 88.4 fL (83.0-100.0); Mean Platelet Volume 9.5 fL (9.4-12.4); Monocytes # 0.6 K/mcL (0.0-1.3); Monocytes % 6.2 %; Neutrophils # 5.7 K/mcL (1.6-8.9); Platelet Count 335 K/mcL (140-400); Red Blood Count 4.21 M/mcL (3.82-4.97); Red Cell Distribution Width 14.7 % (11.5-14.5); Segmented Neutrophils % 60.1 %
[2018-04-01 09:14] LABS: BUN/Creatinine Ratio 12 (6-26); Blood Urea Nitrogen 12 mg/dL (6-20); Calcium 8.7 mg/dL (8.6-10.3); Carbon Dioxide 21 mEq/L (23-29); Chloride 107 mEq/L (98-107); Glucose 89 mg/dL (70-105); Osmolality,Calculated 277 (280-300); Potassium 4.1 mEq/L (3.5-5.1); Sodium 134 mEq/L (136-145); eGFR For Non-African Americans 60 (> 60)
[2018-04-01 09:15] LABS: Hemoglobin 12.1 g/dL (11.5-15.4)
--- NOTE | 2018-04-01 09:59 | Event Note ---
Date of Encounter: 04/01/18 Time of Encounter: 09:57 - Cardiology Event Note Pt continues to have chest pain 6/10 on nitro gtt at 10mcg/min and despite attempt at optimizing meds yesterday. TTE resulted--EF preserved, mild cLVH. Discussed and reviewed films with Dr. Sweeney, interventionalist. [facility] today with jared hill for PCI of mLAD. R/B/A discussed. Pt agrees to proceed.
[2018-04-01] MEDS: Acetaminophen 325 MG TABLET PO PRN ×2 (10:12→21:52)
[2018-04-01] MEDS ORDERED: *HR* Heparin 5,000 UNIT/ML VIAL IVP PRN ×2 (11:54)
[2018-04-01] MEDS ORDERED: Heparin 1,000 UNITS/500 mL 500 ML ONE (14:59)
[2018-04-01] MEDS ORDERED: 0.9 % Sodium Chloride 1,000 ML ONE ×2 (14:59→15:13)
[2018-04-01] MEDS ORDERED: ISOVUE-370 200 ML INFUS..BTL ONE (14:59)
[2018-04-01] MEDS ORDERED: *HR* Bivalirudin 250 MG VIAL IVC ONE (14:59)
[2018-04-01] MEDS ORDERED: *HR* Heparin 10,000 UNIT/10 ML VIAL ONE (14:59)
[2018-04-01] MEDS ORDERED: Nitroglycerin 1,000 MCG/10 ML VIAL IV ONE (15:00)
--- NOTE | 2018-04-01 15:21 | Pre-Sedation Evaluation ---
Pre-sedation evaluation - Pre-sedation checklist Date of procedure: 04/01/18 Procedure: heart cath Recent Vitals: Last Vital Signs Temp 98.9 F 04/01/18 11:20 Pulse 62 04/01/18 11:20 Resp 16 04/01/18 11:20 BP 111/62 04/01/18 13:21 Pulse Ox 98 04/01/18 11:20 H&P (including ROS) documented in medical record: Yes Previous reaction to sedatives/anesthetics: Yes; explain in comment Dietary Status: NPO after Midnight Airway Assessment: Patient can open mouth completely, TMJ function normal Dentition: dentures removed Possible difficult airway: No ASA Classification *see protocol: CLASS III-Severe systemic disease, CLASS IV- Severe systemic disease/constant threat to pt's life Plan of Care: Pt appropriate candidate for procedure/moderate/conscious sedation, Risks/benefits of procedure/sedation discussed w/ patient/family, If not NPO; Risk of intake outweiged by necessity to perform procedure Cardiac Registry (Cardio Only) - Functional Capacity Functional Capacity: >=4 METS without symptoms - Clincal Frailty Scale Clinical Frailty Scale: Managing Well
[2018-04-01] MEDS ORDERED: *HR* Ticagrelor 90 MG TABLET ONE (16:03)
--- NOTE | 2018-04-01 16:23 | Invasive Diagnostic Lab Proc ---
Name: Lorena Lew Date of Study: 04/01/2018 Date: 1975 Ht: 66.9in Medical Record#: [id number] Age: 42 Wt: 167.55lb Gender: Female BSA: 1.87 Order #: [id number] BMI: 26.3 Physicians Procedure Physician: Tho Sweeney DO Referring MD: Referring MD: Staff Name Position Time In Olena Caro RN Editor At Large 03:16 PM Garcia Anthony RN Monitor 03:16 PM Todd Lozano RT (R) Scrub 03:17 PM Indications Indication Unstable Angina Procedures Performed Procedure L HRT ARTERY/VENTRICLE ANGIO PRQ CARD MARY STENT W/ANGIO 1 VSL Pre-Procedure Checklist Informed consent is complete signed and on chart. H&P is on chart. ID band is on and ID verified with patient. Patient NPO for procedure The procedure was described for the patient and questions were answered. ECG is on chart. Plan of Care Patient will tolerate the procedure without complications. Adequate level of comfort will be maintained. Hemodynamics will remain stable Patient will recover from procedure without complications. Respiratory function will be maintained. Cardiac rhythm will remain stable. Patient temperature will be maintained. Patient and/or family have verbalized understanding of the procedure. Patient Education Chief Complaint/Reason for Test: Cardiac Cath Developmental Category: Adult (18-64 years) Developmentally Appropriate for Age: Yes Learning Barriers: None Education Needs: Procedure Education Method: Verbal Information Taught: Cardiac Cath Educational Evaluation: Able to repeat information Intravenous Access Time IV Size Location DC'd Fluid/Drip Rate Units RN 20g 1 /" Patent On Arrival Rt Arm Allergies morphine Vital Signs Time BP (mmHg) HR (bpm) O2 Sat. RR (bpm) LOC 03:20 PM / % 5 = Fully awake and oriented or at pre-proc level 03:22 PM 124 / 65 59 99 % 7 03:27 PM 127 / 76 60 100 % 22 03:32 PM 114 / 74 60 99 % 6 03:37 PM 119 / 73 58 99 % 26 03:42 PM 124 / 76 59 99 % 19 03:47 PM 134 / 81 58 100 % 16 03:52 PM 138 / 80 59 100 % 18 03:58 PM 151 / 81 62 100 % 17 04:02 PM 138 / 82 61 100 % 9 Procedural Medications Time Medication Dose Units Method Given By 03:29 PM Versed 2 mg Intravenous Olena Caro RN 03:35 PM Versed 1 mg Intravenous Olena Caro RN 03:36 PM Lidocaine 2% 10 ml Subcutaneous Tho Sweeney DO 03:45 PM Angiomax 0.75mg/kg bolus: 11 ml Intravenous Olena Caro RN 03:45 PM Angiomax 1.75mg/kg/hr: 26 ml/hr Intravenous Olena Caro RN 03:49 PM Benadryl 50 mg Intravenous Olena Caro RN 04:02 PM Brilinta 180 mg Orally Olena Caro RN ASA Classification: CLASS III- Severe systemic disease (i.e. prior AMI, diabetes with vascular complications, morbid obesity) Catherine Score Preprocedure Postprocedure Activity 2- Moves 4 extremities sustained head lift Activity Circulation 2- SBP +/= 20 points of pre-anesthetic level Circulation Consciousness 2- Awake and alert oriented x 3 Consciousness O2 Saturation 2- Able to maintain O2 satruation of 92% on room air O2 Saturation Respiratory 2- Able to deep breathe and cough well Respiratory Total Score 10 Total Score Contrast Agent: Isovue Diagnostic Contrast: 75 ml Total Contrast: 75 ml Fluoro Dose: 3535 mGy Procedure Log Time Note Enter By 03:16 PM 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 [facility] 03:20 PM Physician arrived 15:20 [facility] 03:20 PM Meet and greet completed [facility] 03:20 PM Sign in performed according to hospital policy. Informed consent was obtained. [facility] 03:20 PM Procedure start 15:20 [facility] 03:20 PM Time: 15:20 Patient comfortable and pain free: Yes [facility] 03:20 PM Time: 15:20LOC: 5 = Fully awake and oriented or at pre-proc level [facility] 03:21 PM CathStat 03:22 PM Case Start 03:22 PM Vitals capture started with the following parameters, Patient=Adult, Interval=5 min, Initial Nzilgpap=304 mmHg, Deflation Rate=5 mmHg, Cuff placed on Right Arm 03:22 PM HR=59 bpm, DDDR=992/65 mmhg, SpO2=99.0 %, Resp=7 B/min, Comment=NSR 03:27 PM ASA Class CLASS III- Severe systemic disease (i.e. prior AMI, diabetes with vascular complications, morbid obesity) [facility] 03:27 PM HR=60 bpm, XXTJ=986/76 mmhg, OfG8=787 %, Resp=22 B/min 03:29 PM Pressure channel 2 zero failed. 03:29 PM Time: 15:29 Versed 2 mg Intravenous Given by Olena Caro RN [facility] 03:29 PM Pressure channel 2 zeroed. 03:32 PM HR=60 bpm, EGKH=420/74 mmhg, SpO2=99.0 %, Resp=6 B/min, EtCO2=34 mmHg, Comment=NSR 03:33 PM Clinical Presentation: Unstable angina [facility] 03:35 PM Time out was performed according to hospital policy. Conscious sedation and anesthesia was achieved (see medication log with in this report above) [facility] 03:35 PM Recorded ECG: HR=60 Condition=Condition 1 03:35 PM Time: 15:35 Versed 1 mg Intravenous Given by Olena Caro RN [facility] 03:36 PM Time: 15:36 10 ml Lidocaine 2% to right groin Subcutaneous Given by Tho Sweeney DO [facility] 03:37 PM HR=58 bpm, YHGY=973/73 mmhg, SpO2=99.0 %, Resp=26 B/min, EtCO2=39 mmHg, Comment=NSR 03:37 PM Micro-Introducer Kit utilized for sheath placement cedwards 03:39 PM Access obtained by percutaneous puncture. 6Fr 10cm Terumo [place] sheath placed in right Femoral artery. [id number] c[facility] 03:39 PM Recorded Pressure: LV, HR=77, Condition=Condition 1 (Left Ventricle) LV 71/-7/6 03:40 PM Recorded Pressure: LV, Ao, HR=59, Condition=Condition 1 (Left Ventricle) LV 110/-5/11, (Aorta) Ao 106/47/73 03:40 PM Recorded Pressure: Ao, HR=59, Condition=Condition 1 (Aorta) Ao 101/53/72 03:40 PM 6Fr FR 4 catheter inserted over the wire DN ced[facility] 03:40 PM Catheter crossed the aortic valve and was selectively placed in the left ventricle. Pressures recorded on pullback for left heart catheterization. [facility]ed[facility] 03:41 PM Bolus angiogram of left Ventricle complete cedwards 03:41 PM RCA angiography performed in multiple views. ced[facility] 03:41 PM 0.035 145cm Navilyst 3mmJ wire [id number] [facility] 03:41 PM Catheter removed ced[place] 03:41 PM 6Fr JL4 Runway guide catheter was used to cannulate the PCI vessel successfully. reused? No ced[place] 03:42 PM LCA angiography performed in multiple views. cedwards 03:42 PM HR=59 bpm, AXPM=943/76 mmhg, SpO2=99.0 %, Resp=19 B/min, EtCO2=34 mmHg, Comment=NSR 03:42 PM Coronary Dominance: Left cedwards 03:44 PM Recorded Pressure: Ao, HR=61, Condition=Condition 1 (Aorta) Ao 134/73/97 03:45 PM Lesion found in Mid LAD. Pre Stenosis: 70 Pre JOSEFINA Flow: 3: Complete and Brisk Flow/Perfusion cedwards 03:45 PM .014 Choice Extra Support 1300cm guide wire across target lesion- successful. reused? No cedwards 03:45 PM Time: 15:45 Angiomax 0.75mg/kg bolus: 11 ml Intravenous Given by Olena Caro RN Simmons pump ced[facility] 03:46 PM Time: 15:45 Angiomax 1.75mg/kg/hr: 26 ml/hr Intravenous Given by Olena Caro RN Simmons pump c[place] 03:47 PM HR=58 bpm, CSHG=026/81 mmhg, OcE3=859.0 %, Resp=16 B/min, EtCO2=33 mmHg, Comment=NSR 03:49 PM Time: 15:49 Benadryl 50 mg Intravenous Given by Olena Caro RN [place] 03:52 PM HR=59 bpm, IKNY=144/80 mmhg, CbR5=923.0 %, Resp=18 B/min, EtCO2=37 mmHg, Comment=NSR 03:55 PM 3.5mm x 28mm Cordis EluNIR drug-eluting stent across target lesion- successful Lot #[id number] c[place] 03:56 PM Stent deployed @ 14 saeed for 16 seconds ced[facility] 03:57 PM Stent delivery system removed intact. ced[facility] 03:57 PM Guide wire removed intact. ced[facility] 03:58 PM Recorded Pressure: Ao, HR=63, Condition=Condition 1 (Aorta) Ao 115/68/85 03:58 PM HR=62 bpm, LBVR=228/81 mmhg, FzH5=345.0 %, Resp=17 B/min, EtCO2=36 mmHg, Comment=NSR 03:59 PM Procedure completed at 15:59 04/01/2018 [facility] 03:59 PM Did you address JOSEFINA flow and Dominance? Yes [facility] 04:00 PM Sign out completed: Radiation Dose 341.78 mGy, 3535.43 cGy/cm2 Fluoro Time: 2.9 Isovue 370 - 200ml contrast 75 ml given by Tho Sweeney DO. Complications: None. 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 Cardiac Rehab Consult needed: YesConfirmed administered medications: Yes cedwards 04:00 PM Isovue 370 - 200ml,1 Bottle(s) used. cedwards 04:00 PM Sheath left in place to be pulled on floor/holding areaV+Pad ced[facility] 04:00 PM Estimated Blood Loss: minimal c[facility] 04:00 PM Post ECG NSR [facility] 04:00 PM Post Blood Pressure 151/81 [facility] 04:01 PM Information taught Cardiac Cath and PCI c[facility] 04:01 PM Education needs Procedure, Plan of Care, and Disease Process [facility] 04:01 PM Learning barriers :None [facility] 04:01 PM Education Methods Verbal [facility] 04:01 PM Education evaluation Able to repeat information [facility] 04:01 PM Site status No bleeding/hematoma - Rt Groin as reported by Genoveva Milner RT at 16:01 [facility] 04:01 PM Opsite applied c[facility] 04:02 PM Plavix, Effient or Brilinta given Yes [facility] 04:02 PM Time: 16:02 Brilinta 180 mg Orally Given by Olena Caro RN [facility] 04:02 PM HR=61 bpm, IYIM=085/82 mmhg, JvL9=292.0 %, Resp=9 B/min 04:03 PM Angiomax stopped [facility] 04:07 PM Report given to Pascual CHAVEZ Pt taken to ICU1 Room #. 16:07 [facility] 04:07 PM Family placed in consult room. [facility] 04:07 PM Complications: None [facility] 04:08 PM Patient out of room: 16:07 cedwards Complications Complication None None Hemodynamics Pressures Site Systolic/A Wave Diastolic/V Wave Mean LV 71 -7 6 LV 110 -5 11 AO 106 47 73 AO 101 53 72 AO 134 73 97 AO 115 68 85 Post Procedure Information Blood Pressure: 151/81 mmHg Rhythm: NSR Post procedural instructions were given Site Checks Time Location Status Staff Sheath In? Note 04:01 PM Rt Groin No bleeding/hematoma Genoveva Milner RT Yes 6 [place] Updated by Garcia Anthony RN on 04/01/2018 4:13:38 PM electronically signed on 04/01/2018 4:15:11 PM with status of Final
[2018-04-01] MEDS ORDERED: *HR* Dextrose 50 % in Water (Syg) 50 ML SYRINGE ONE (17:25)
[2018-04-01] MEDS ORDERED: *HR* Dextrose 50 % in Water (Syg) 50 ML SYRINGE IVP ONE (17:40)
[2018-04-01] MEDS: 0.9 % Sodium Chloride 1,000 ML IVC SCH (17:42)
[2018-04-01] MEDS ORDERED: *HR* Atropine Sulfate 1 MG/10 ML SYRINGE ONE (18:33)
[2018-04-01] MEDS: *HR* Ticagrelor 90 MG TABLET PO SCH (21:53)
[2018-04-02] MEDS: 0.9 % Sodium Chloride 1,000 ML IVC SCH ×2 (02:30→03:43)
[2018-04-02] MEDS: traMADol 50 MG TABLET PO PRN (07:33)
--- NOTE | 2018-04-02 09:02 | Cardiology Progress Note ---
Date of Encounter: 04/02/18 Time of Encounter: 08:45 Assessment and Plan (1) Chest pain Current Visit: Yes Status: Resolved Per HPI, presented with chest pain. EKG no ischemic changes. Troponin negative x 3. Recent [facility] 03/18/18: There is mild to moderate two vessel CAD. EF 65%. FFR Measurement: 0.81 (Mid LAD). Due to persistent chest pain [facility] recommended to re-evaluate LAD. She underwent PCI to the LAD with no complication yesterday. Reports chest pressure improved. C/o atypical sharp chest pain that did not change. EKG this morning with n acute ST changes. Likely muscle skeletal. Recommend pt ambulate. If no increase in chest pain continue mm. Increase Ranexa to 1000 mg BID. Unable to tolerate Imdur d/t headaches. Continue asa, statin, bb, and brilinta. Importance of DAPT uninterrupted for min one year reviewed with patient and she voiced understanding. Activity restrictions reviewed and attached to document. Out-pt f/u will be coordinated with [facility]. Qualifiers: Chest pain type: chest pain due to myocardial ischemia Ischemic chest pain type: unstable angina pectoris Qualified Code(s): I20.0 - Unstable angina (2) Coronary artery disease Current Visit: Yes Status: Chronic As above. [facility] 03/18 mild-moderate 2V CAD. 60% mLAD, FFR 0.81. S/p PCI to the LAD 04/01/18 with no complication. Continue ASA, brilinta, Statin, BB, ranexa. Qualifiers: Coronary Disease-Associated Artery/Lesion type: [place] artery [place] vs. transplanted heart: [place] heart Associated angina: with unstable angina Qualified Code(s): I25.110 - Atherosclerotic heart disease of [place] coronary artery with unstable angina pectoris (3) Tobacco abuse Current Visit: Yes Status: Chronic Smoking cessation counseling given. Discussion w patient/family: The assessment and plan as outlined above was discussed with the patient and/or family members who expressed understanding and agreement. All questions were answered. Thank you for involving us in the care of your patient. Please call with any questions. Subjective Principal diagnosis: Chest pain, CAD Interval history: Ms. Lew is resting quietly in bed. She c/o sharp left sided chest pain that is unchanged since her procedure. States that the chest pressure was relieved. EKG completed showed no acute ST changes. Objective Vital Signs, Last 4 Hours Temp Pulse Resp BP Pulse Ox 04/02/18 08:02 98.5 F 04/02/18 07:00 64 16 113/73 97 04/02/18 06:00 74 16 122/75 95 04/02/18 05:00 63 18 100/68 95 General: Conversant, No Apparent Distress HEENT: Atraumatic, Normocephaly, Mucus Membranes Moist Neck: No JVD, Normal carotid pulses Cardiac: Reg Rate and Rhythm, Normal S1 and S2, No Murmur Lungs: Normal Breath Sounds, No Wheeze, Rales, Rhonchi Neuro: Alert and responsive, No focal deficits noted Abdomen: Soft, Non-Tender Skin: No rashes noted on visualized skin Musculoskeletal: No Chest Wall Tenderness Extremities: No Clubbing, No Cyanosis, No Edema, Normal Pulses, Other (Dressing right groin removed. No hematoma. Small pea sized know that is tender to palpation noted. ) Results 04/01/18 08:15 04/01/18 08:15 Lab Results 04/01/18 04/01/18 08:15 08:15 WBC 9.5 Hgb 12.1 D Hct 37.2 Plt Count 335 Sodium 134 L Potassium 4.1 Chloride 107 Carbon Dioxide 21 L BUN 12 Creatinine 1.01 Glucose 89 Calcium 8.7 - Imaging and Cardiology Echo: report reviewed - EKG Interpretation EKG results cardiology: personally reviewed Consult Discharge Plan - Plan Referrals: Swapna Lugo, ADRIANA [Primary Care Provider] -
[2018-04-02] MEDS: Ranolazine 500 MG TAB.ER.12H PO SCH (09:08)
[2018-04-02] MEDS: Venlafaxine XR (24 HR) 75 MG CAP.ER.24H PO SCH (09:09)
[2018-04-02] MEDS: Aspirin Enteric Coated 81 MG Tablet PO SCH (09:10)
[2018-04-02] MEDS: *HR* Ticagrelor 90 MG TABLET PO SCH (09:10)
--- NOTE | 2018-04-02 10:48 | Discharge Summary ---
Date of Encounter: 04/02/18 Time of Encounter: 10:45 - Discharge Diagnosis (1) Unstable angina Priority: Primary Status: Acute Assessment and Plan: 42-year-old woman with hypertension, hyperlipidemia and coronary artery disease found to have mild to moderate 2 vessel disease on cardiac catheter done for unstable angina on 03/18/18 and no further intervention done as she was scheduled for lithotripsy and ureteral stent placement the setting of nephrolithiasis a few days after. She comes to the ER today complaining of chest pain that started at 3 AM this morning while sleep describing it as a crushing pressure sensation in the center of her chest that resolved with nitroglycerin. Later on in the day after work she again developed chest pain but now with radiation to the left side of her neck and shoulder. She was assessed with unstable angina and was started on nitroglycerin and heparin gtt to achieve pain control. She was seen by cardiology who started on ranexa BId and increased her dose of lopressor. She underwent a left heart cath with PCI to the LAD. She tolerated procedure well with no acute complications. She will followup with cardiology outpatient. She will continue aspirin and brillinta. 35minutes was spent discharging this patient (2) Coronary artery disease Priority: Primary Status: Chronic Qualifiers: Coronary Disease-Associated Artery/Lesion type: [place] artery [place] vs. transplanted heart: [place] heart Associated angina: with unstable angina Qualified Code(s): I25.110 - Atherosclerotic heart disease of [place] coronary artery with unstable angina pectoris (3) Depression Priority: Primary Status: Chronic Qualifiers: Depression Type: unspecified Qualified Code(s): F32.9 - Major depressive disorder, single episode, unspecified (4) Tobacco abuse Priority: Primary Status: Chronic Hospital course: Ms. Lew is a 42 year old female - Time Spent with Patient Total time spent providing and/or coordinating discharge services: - Discharge Medications Prescriptions: Cyclobenzaprine [Flexeril] 10 mg PO TID PRN 10 Days #20 tablet PRN Reason: Chest Pain Metoprolol [Lopressor] 50 mg PO BID #60 tablet Ranolazine [Ranexa] 1,000 mg PO BID #60 tab.er.12h Ticagrelor [Brilinta] 90 mg PO BID 30 Days #60 tablet Home Medications: Acetaminophen [Tylenol] 650 mg PO Q6HR PRN 03/17/18 [History] Buspirone HCl [Buspar] 30 mg PO BID 03/17/18 [History] Oxybutynin Chloride [Ditropan Xl] 5 mg PO DAILY 03/17/18 [History] Atorvastatin [Lipitor] 40 mg PO HS 30 Days #30 tablet 03/18/18 [Rx] Amitriptyline [Elavil] 75 mg PO HS 03/30/18 [History] Aspirin Enteric Coated [Aspirin EC] 81 mg PO DAILY 03/30/18 [History] Linaclotide [Linzess] 290 mcg PO DAILY 03/30/18 [History] Nitroglycerin [Nitrostat] 0.4 mg PO AD PRN 03/30/18 [History] Pantoprazole Sodium [Protonix] 40 mg PO DAILY 03/30/18 [History] Venlafaxine HCl [Venlafaxine HCl ER] 225 mg PO DAILY 03/30/18 [History] Cyclobenzaprine [Flexeril] 10 mg PO TID PRN 10 Days #20 tablet 04/02/18 [Rx] Metoprolol [Lopressor] 50 mg PO BID #60 tablet 04/02/18 [Rx] Ranolazine [Ranexa] 1,000 mg PO BID #60 tab.er.12h 04/02/18 [Rx] Ticagrelor [Brilinta] 90 mg PO BID 30 Days #60 tablet 04/02/18 [Rx] Allergies/Adverse Reactions: Allergy/AdvReac Type Severity Reaction Status Date / Time morphine AdvReac Intermediate Vomiting Verified 03/30/18 18:44 Date of admission: 04/01/18 11:54 Primary care physician: Swapna Lugo CNP Consults: 03/31/18 06:15 Consult to Cardiology [CONS] Routine Comment: Consulting Provider: Cardiology Lizbeth Reason for Consult: Patient known to service with 2 vessel disease. Presents with unstable angina. Call Completed: No 04/01/18 16:24 Consult to Cardiac Rehabilitation-Phase1 [CONS] Routine Comment: Reason for Consult: AMI Call Completed: Yes Consult to Nurse Navigator [CONS] Routine Comment: - Constitutional Vitals: Temp Pulse Resp BP Pulse Ox 98.5 F 60 10 136/74 98 04/02/18 08:02 04/02/18 10:00 04/02/18 10:00 04/02/18 10:00 04/02/18 10:00 Exam: Vitals: Reviewed General: Well-developed and well-appearing in no acute distress. Skin: Warm and supple. HEENT: Moist mucous membranes. No conjunctivae pallor. Neck: No lymphadenopathy. No JVD. No carotid bruits. No palpable thyroid. Chest: Normal thoracic expansion. Normal breath sounds. Clear to auscultation. Heart: Normal S1 & S2; rhythmic. No rubs or murmurs. Abdomen: Non-distended, soft and non-tender to palpation. No peritoneal reacti on. Extremities: No clubbing, cyanosis or edema. No calf tenderness. Normal distal pulses. Neurological: Awake, alert and oriented to person, place and time. No focal deficits. Psych: Affect appropriate. - Patient Status Disposition: Home, Self-Care Condition: Fair - Discharge Instructions Instructions: Chest Pain (DC) Follow Up With: Oniel Roque CNP [Advanced Practice Nurse] - (office will call with appt date/time) Swapna Lugo CNP [Primary Care Provider] - 04/09/18 11:10 am (appt with Swapna at [facility]
[2018-04-02 11:50] VITALS: BP 100/62
--- NOTE | 2018-04-02 17:54 | Electrocardiograph Report ---
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
[2018-04-02] MEDS ORDERED: Ranolazine 500 MG TAB.ER.12H PO SCH (21:00)
--- NOTE | 2018-04-03 16:39 | Electrocardiograph Report ---
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
--- NOTE | 2018-04-03 17:00 | Electrocardiograph Report ---
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
== END 2018-04-02 12:42 | disposition home or self-care (01) | DRG 247 ==
LOC: EMEROOARM 17:22 → 2ANU 17:22 → ICNU 04-01 13:37
PROVIDERS: ADMIT Internal Medicine; ATTEND Internal Medicine